=== PATIENT | female | born 1965 | race Caucasian/White ===

== ENCOUNTER 2018-07-22 17:14 | Emergency (ER) | payer BC ==
[~2018-07-22] VITALS: Ht 160 cm; Wt 70.3 kg
[2018-07-22 17:24] VITALS: BP 116/72
[2018-07-22] MEDS ORDERED: MECLIZINE 25 MG TAB PO ONE (18:40)
[2018-07-22] MEDS ORDERED: cefTRIAXone 1,000 MG in LIDOCAINE 1% ***ER ONLY *** 2.1 ML IM ONE (18:40)
[2018-07-22] MEDS ORDERED: hydrOXYzine HCL 25 MG TAB PO ONE (18:40)
[2018-07-22] MEDS ORDERED: DEXAMETHASONE 10 MG/ML VIAL IM ONE (18:40)
[2018-07-22] MEDS ORDERED: KETOROLAC 60 MG/2 ML VIAL IM ONE (18:40)
[2018-07-22] MEDS ORDERED: LEVOFLOXACIN 500 MG TAB PO ONE (18:40)
[2018-07-22] MEDS ORDERED: cefTRIAXone 1,000 MG VIAL ONE (18:59)
[2018-07-22 19:29] VITALS: BP 115/68
== END 2018-07-22 19:29 | disposition home or self-care (01) ==
LOC: MED 17:14
DX: H69.91 Unspecified Eustachian tube disorder, right ear (principal); J45.909 Unspecified asthma, uncomplicated
CPT/HCPCS: 96372; 99284; J0696; J1100; J1885; J8597